=== PATIENT | male | born 1985 | race Caucasian/White ===

== ENCOUNTER 2020-10-29 07:59 | Emergency (ER) | payer BC ==
--- NOTE | 2020-10-29 09:16 | EDM.PDOC ---
ED HPI GENERAL MEDICAL PROBLEM - General Chief Complaint: Lower Extremity Injury/Pain Stated Complaint: FEET SWOLLEN AND PAINFUL HX OF GOUT Time Seen by Provider: 10/29/20 08:10 Source of Information: Reports: Patient, Family History Limitations: Reports: No Limitations - History of Present Illness INITIAL COMMENTS - FREE TEXT/NARRATIVE: The patient presents with bilateral foot pain. This has been an ongoing problems since last August. He said he developed gout in his right foot. He was given indomethacin and it helped but was never 100%. He saw Dr Carter and he agreed with the gout diagnosis. He takes allupurinol but not all the time. He has had 2 more flair ups of gout since then. He had some dental work done on 10/19/20. A few days after that he developed some lesions on his tongue. He saw his dentist again and he was treated with some dental paste. He still has the sores. A couple days ago he developed pain in both feet. He did not injure his feet. He has some swelling to the left lateral foot. He has pain to the achiles area in both and to the front and lateral left foot. He did have an x- ray of his right foot in the past. He had a fever for a few days when the sores showed up. The fever is gone now. He has no fever now. He has no chills, cough, chest pain, shortness of breath, abdominal pain, nausea, vomiting, diarrhea or dysuria. Onset: Gradual Duration: Day(s): Location: Reports: Lower Extremity, Left (foot), Lower Extremity, Right (foot) Quality: Reports: Sharp Severity: Moderate Improves with: Reports: Immobilization Worsens with: Reports: Movement Context: Denies: Trauma Associated Symptoms: Reports: Fever/Chills (a few days ago). Denies: Chest Pain, Cough, Headaches, Nausea/Vomiting, Shortness of Breath Bilateral Feet Pain Score (Numeric/FACES): 4 - Related Data Allergies Allergy/AdvReac Type Severity Reaction Status Date / Time Penicillins Allergy Rash Verified 10/29/20 08:12 Home Meds: Home Meds Acyclovir 400 mg PO TID #21 tablet 10/29/20 [Rx] Allopurinol [Zyloprim] 300 mg PO DAILY 10/29/20 [History] predniSONE [Prednisone] 40 mg PO DAILY #14 tablet 10/29/20 [Rx] Past Medical History - Past Surgical History HEENT Surgical History: Reports: Tonsillectomy Social & Family History - Tobacco Use Tobacco Use Status *Q: Never Tobacco User - Caffeine Use Caffeine Use: Reports: None - Recreational Drug Use Recreational Drug Use: No Review of Systems - Review of Systems Review Of Systems: See Below Constitutional: Reports: Fever. Denies: Chills Eyes: Reports: No Symptoms Ears: Reports: No Symptoms Nose: Reports: No Symptoms Mouth/Throat: Reports: Other (sores on his tongue and mouth) Respiratory: Reports: No Symptoms Cardiovascular: Reports: No Symptoms GI/Abdominal: Reports: No Symptoms Genitourinary: Reports: No Symptoms Musculoskeletal: Reports: Other (right and left foot pain and swelling) ED EXAM, GENERAL - Physical Exam Exam: See Below Exam Limited By: No Limitations General Appearance: Alert, No Apparent Distress Ears: Normal External Exam Nose: Normal Inspection Throat/Mouth: Other (ulcers to his right tongue and upper inner cheek) Head: Atraumatic, Normocephalic Neck: Normal Inspection Respiratory/Chest: No Respiratory Distress, Lungs Clear, Normal Breath Sounds Cardiovascular: Regular Rate, Rhythm, No Edema, No Murmur GI/Abdominal: Soft, Non-Tender, No Organomegaly, No Mass Back Exam: Normal Inspection Extremities: Other (Mild edema and pain upon palpation to the anterior lateral left food. Good sensation and pulses distaly. No pain upon palpation to the right foot. Mild edema to the medial foot. Good sensation and pulses distally.) Course - Vital Signs Last Recorded V/S: Last Vital Signs Temp 97.4 F 10/29/20 08:14 Pulse 72 10/29/20 08:14 Resp 13 10/29/20 08:14 BP 147/96 H 10/29/20 08:14 Pulse Ox 98 10/29/20 08:14 - Orders/Labs/Meds Orders: Active Orders 24 hr Category Date Time Status Cardiac Monitoring [RC] . DIRECTED Care 10/29/20 08:35 Active Foot Comp Min 3V Lt [CR] Stat Exams 10/29/20 10:19 Ordered HERPES/VARICELLA [MREF] Stat Lab 10/29/20 09:20 Received Labs: Laboratory Tests 10/29/20 10/29/20 10/29/20 Range/Units 09:00 09:00 09:00 WBC 11.02 H (4.23-9.07) K/mm3 RBC 4.91 (4.63-6.08) M/mm3 Hgb 15.0 (13.7-17.5) gm/dl Hct 43.4 (40.1-51.0) % MCV 88.4 (79.0-92.2) fl MCH 30.5 (25.7-32.2) pg MCHC 34.6 (32.2-35.5) g/dl RDW Std Deviation 39.9 (35.1-43.9) fL Plt Count 256 (163-337) K/mm3 MPV 8.4 L (9.4-12.3) fl Neut % (Auto) 64.3 (34.0-67.9) % Lymph % (Auto) 24.1 (21.8-53.1) % [place] % (Auto) 9.4 (5.3-12.2) % Eos % (Auto) 1.3 (0.8-7.0) Baso % (Auto) 0.5 (0.1-1.2) % Neut # (Auto) 7.09 H (1.78-5.38) K/mm3 Lymph # (Auto) 2.66 (1.32-3.57) K/mm3 [place] # (Auto) 1.04 H (0.30-0.82) K/mm3 Eos # (Auto) 0.14 (0.04-0.54) K/mm3 Baso # (Auto) 0.05 (0.01-0.08) K/mm3 Manual Slide Review Abnormal smear ESR 17 H (0-15) mm/hr Sodium 141 (136-145) mEq/L Potassium 4.3 (3.5-5.1) mEq/L Chloride 103 (98-107) mEq/L Carbon Dioxide 28 (21-32) mEq/L Anion Gap 14.3 (5-15) BUN 15 (7-18) mg/dL Creatinine 0.9 (0.7-1.3) mg/dL Est Cr Clr Drug Dosing 109.15 mL/min Estimated GFR (MDRD) > 60 (>60) mL/min BUN/Creatinine Ratio 16.7 (14-18) Glucose 90 (70-99) mg/dL Uric Acid 4.0 (3.5-7.2) mg/dL Calcium 9.3 (8.5-10.1) mg/dL Magnesium 2.1 (1.8-2.4) mg/dL Total Bilirubin 0.4 (0.2-1.0) mg/dL AST 13 L (15-37) U/L ALT 26 (16-63) U/L Alkaline Phosphatase 98 (46-116) U/L C-Reactive Protein 2.4 H* (<1.0) mg/dL Total Protein 8.0 (6.4-8.2) g/dl Albumin 4.1 (3.4-5.0) g/dl Globulin 3.9 gm/dL Albumin/Globulin Ratio 1.1 (1-2) Rheumatoid Factor Scrn (NEGATIVE) 10/29/20 Range/Units 09:00 WBC (4.23-9.07) K/mm3 RBC (4.63-6.08) M/mm3 Hgb (13.7-17.5) gm/dl Hct (40.1-51.0) % MCV (79.0-92.2) fl MCH (25.7-32.2) pg MCHC (32.2-35.5) g/dl RDW Std Deviation (35.1-43.9) fL Plt Count (163-337) K/mm3 MPV (9.4-12.3) fl Neut % (Auto) (34.0-67.9) % Lymph % (Auto) (21.8-53.1) % [place] % (Auto) (5.3-12.2) % Eos % (Auto) (0.8-7.0) Baso % (Auto) (0.1-1.2) % Neut # (Auto) (1.78-5.38) K/mm3 Lymph # (Auto) (1.32-3.57) K/mm3 [place] # (Auto) (0.30-0.82) K/mm3 Eos # (Auto) (0.04-0.54) K/mm3 Baso # (Auto) (0.01-0.08) K/mm3 Manual Slide Review ESR (0-15) mm/hr Sodium (136-145) mEq/L Potassium (3.5-5.1) mEq/L Chloride (98-107) mEq/L Carbon Dioxide (21-32) mEq/L Anion Gap (5-15) BUN (7-18) mg/dL Creatinine (0.7-1.3) mg/dL Est Cr Clr Drug Dosing mL/min Estimated GFR (MDRD) (>60) mL/min BUN/Creatinine Ratio (14-18) Glucose (70-99) mg/dL Uric Acid (3.5-7.2) mg/dL Calcium (8.5-10.1) mg/dL Magnesium (1.8-2.4) mg/dL Total Bilirubin (0.2-1.0) mg/dL AST (15-37) U/L ALT (16-63) U/L Alkaline Phosphatase (46-116) U/L C-Reactive Protein (<1.0) mg/dL Total Protein (6.4-8.2) g/dl Albumin (3.4-5.0) g/dl Globulin gm/dL Albumin/Globulin Ratio (1-2) Rheumatoid Factor Scrn Negative (NEGATIVE) - Re-Assessments/Exams Free Text/Narrative Re-Assessment/Exam: 10/29/20 09:42 I ordered labs and an HSV culture of his tongue and mouth. 10/29/20 10:28 His WBC was elevated at 11.02. His CRP is elevated at 2.4. His uric acid is normal at 4. His ESR is elevated at 17. I feel he has a reactive arthritis. I will get him on some acyclivir for the oral lesions and prednisone daily. 10/29/20 10:30 I did an x-ray of his foot and it looks good. 10/29/20 10:35 Departure - Departure Time of Disposition: 10:35 Disposition: Home, Self-Care 01 Condition: Good Clinical Impression: Reactive arthritis, Oral mucosal lesion - Discharge Information *PRESCRIPTION DRUG MONITORING PROGRAM REVIEWED*: Not Applicable *COPY OF PRESCRIPTION DRUG MONITORING REPORT IN PATIENT [facility]: Not Applicable Prescriptions: Acyclovir 400 mg PO TID #21 tablet predniSONE [Prednisone] 40 mg PO DAILY #14 tablet Referrals: Dov Blood MD [Primary Care Provider] - 1 Week Forms: ED Department Discharge Additional Instructions: Take the prednisone 40mg daily for 7 days. Take tylenol as needed for pain. Take the acyclovir 3 times per day for 7 days. Ice your ankle or use heat which every one feels better. Follow up with Dr Blood within a week. Please return if you are worse. Sepsis Event Note (ED) - Evaluation Sepsis Screening Result: No Definite Risk - Focused Exam Vital Signs: Vital Signs Temp Pulse Resp BP Pulse Ox 10/29/20 08:14 97.4 F 72 13 147/96 H 98 - My Orders Last 24 Hours: My Active Orders 10/29/20 08:35 Cardiac Monitoring [RC] . DIRECTED 10/29/20 09:20 HERPES/VARICELLA [MREF] Stat 10/29/20 10:19 Foot Comp Min 3V Lt [CR] Stat - Assessment/Plan Last 24 Hours: My Active Orders 10/29/20 08:35 Cardiac Monitoring [RC] . DIRECTED 10/29/20 09:20 HERPES/VARICELLA [MREF] Stat 10/29/20 10:19 Foot Comp Min 3V Lt [CR] Stat
[2020-10-29] MEDS ORDERED: predniSONE 20 MG Tab PO ONE (10:30)
--- NOTE | 2020-10-29 11:37 | CR ---
Left foot: 4 views of the left foot were obtained. Comparison: No prior study. Joint spaces are preserved. Mild soft tissue swelling is noted. No acute fracture, dislocation or other bony abnormality is appreciated. Impression: 1. Mild soft tissue swelling. 2. Left foot study is otherwise unremarkable. Diagnostic code #2
== END 2020-10-29 10:58 | disposition home or self-care (01) ==
LOC: JD.ED 07:59
DX: M02.372 Reiter's disease, left ankle and foot (principal); R60.0 Localized edema; K13.79 Other lesions of oral mucosa
CPT/HCPCS: 36415; 73630; 80053; 83735; 84550; 85025; 85652; 86038; 86140; 86430; 87801; 99283; J7512